=== PATIENT | male | born 1935 | race Caucasian/White ===

== ENCOUNTER → 2016-05-19 | Outpatient (REF) | payer OTHER ==
[2016-05-19 15:56] LABS: ALBUMIN 3.4 GM/DL (3.2-5.2); ALBUMIN/GLOBULIN RATIO 1.13 (1.00-1.93); ALKALINE PHOSPHATASE 62 U/L (45-117); ALT/SGPT 26 U/L (12-78); ANION GAP 8 MEQ/L (8-16); AST/SGOT 18 U/L (15-37); BILIRUBIN,TOTAL 0.9 MG/DL (0.2-1.0); BLOOD UREA NITROGEN 24 MG/DL (7-18); CALCIUM LEVEL 8.9 MG/DL (8.8-10.2); CARBON DIOXIDE LEVEL 28 MEQ/L (21-32); CHLORIDE LEVEL 107 MEQ/L (98-107); CHOLESTEROL LEVEL 136 MG/DL (<200); CREATININE FOR GFR 1.12 MG/DL (0.70-1.30); GLOMERULAR FILTRATION RATE > 60.0 (>35); GLUCOSE, FASTING 87 MG/DL (83-110); POTASSIUM SERUM 4.6 MEQ/L (3.5-5.1); SODIUM LEVEL 143 MEQ/L (136-145); TOTAL PROTEIN 6.4 GM/DL (6.4-8.2); TRIGLYCERIDES LEVEL 115 MG/DL (<150)
== END ==
LOC: M SFHCLACO 08:15
PROVIDERS: ATTEND Physician Assistant
DX: I10 Essential (primary) hypertension (principal); E78.2 Mixed hyperlipidemia; E03.9 Hypothyroidism, unspecified; E55.9 Vitamin D deficiency, unspecified; M15.9 Polyosteoarthritis, unspecified; Z12.5 Encounter for screening for malignant neoplasm of prostate; R97.20 Elevated prostate specific antigen [PSA]; Z85.46 Personal history of malignant neoplasm of prostate

== ENCOUNTER → 2016-11-17 | Outpatient (REF) | payer OTHER ==
[2016-11-17 15:35] LABS: ALBUMIN 3.6 GM/DL (3.2-5.2); ALBUMIN/GLOBULIN RATIO 1.16 (1.00-1.93); BILIRUBIN,TOTAL 1.4 MG/DL (0.2-1.0); CALCIUM LEVEL 9.3 MG/DL (8.8-10.2); CREATININE FOR GFR 1.37 MG/DL (0.70-1.30); POTASSIUM SERUM 4.7 MEQ/L (3.5-5.1); TOTAL PROTEIN 6.7 GM/DL (6.4-8.2)
== END ==
LOC: M SFHCLACO 08:07
PROVIDERS: ATTEND Physician Assistant
DX: I10 Essential (primary) hypertension (principal); E78.2 Mixed hyperlipidemia; E03.9 Hypothyroidism, unspecified; E55.9 Vitamin D deficiency, unspecified

== ENCOUNTER → 2016-12-30 | Outpatient (CLI) | payer OTHER ==
--- NOTE | 2016-12-31 05:42 | ECHO ---
DATE OF PROCEDURE: 12/30/2016 REFERRED BY: DEISI Rico. INDICATION: Murmur. HEIGHT: 67 inches. WEIGHT: 185 pounds. 2D MEASUREMENTS: Aortic root: 3.6 cm Ventricular septum: 1.31 cm Posterior wall: 1.29 cm Left ventricle diastole: 4.0 cm Left atrium: 3.7 cm LVOT: 2.3 cm Inferior vena cava: 1.0 cm DOPPLER MEASUREMENTS: Aortic valve velocity: 84.1 cm/s LVOT velocity: 56.4 cm/s Very mild mitral regurgitation. Mitral E velocity: 58.2 cm/s Mitral A velocity: 73.5 cm/s Mitral deacceleration time: 194 ms Mild tricuspid regurgitation. Estimated right ventricular systolic pressure 32 mmHg assuming an atrial pressure of 5 mmHg. Very mild pulmonic regurgitation. Pulmonary artery systolic pressure 36 mmHg by pulmonary acceleration time method. MITRAL ANNULAR TISSUE DOPPLER: E-prime septal: 5.2 cm/s E-prime lateral: 5.8 cm/s DESCRIPTION: Rhythm was sinus. Image quality was fair. No pericardial effusion. This was a 2D, M-mode, color flow Doppler and pulsed wave Doppler examination and included mitral annular tissue Doppler. CONCLUSIONS: 1. At least moderate calcified atheroma at the sinotubular junction. 2. Mild aortic valve sclerosis of a 3-cusp aortic valve. No aortic regurgitation. No aortic stenosis. 3. Mild concentric left ventricular hypertrophy. No regional LV wall motion abnormalities. Normal LV systolic function. LVEF 60-65% by visual estimate. Grade 1 LV diastolic dysfunction. 4. Suggestive of mild elevation of pulmonary artery systolic pressure and estimated right ventricle systolic pressure.
== END ==
LOC: M CARPUL 11:38
PROVIDERS: ATTEND Physician Assistant
DX: G45.8 Other transient cerebral ischemic attacks and related syndromes (principal); R09.89 Other specified symptoms and signs involving the circulatory and respiratory systems; R01.1 Cardiac murmur, unspecified

== ENCOUNTER → 2016-12-30 | Outpatient (CLI) | payer OTHER ==
--- NOTE | 2016-12-31 00:13 | REP ---
10/27/2004 Clinical: Bilateral carotid bruit and history of subclavian steal. Comparison: 10/27/2004. Technique: Colunga scale and color Doppler evaluation using linear high frequency transducer Findings: Two-dimensional colunga scale and color images demonstrate moderate mixed atheromatous plaque involving the bilateral carotid bulbs and proximal internal carotid arteries (left greater than right). Color Doppler interrogation demonstrates normal arterial wave patterns and velocities with mild spectral broadening. Normal flow direction is appreciated in the right vertebral artery along with reversal of flow direction in the left vertebral artery consistent with prior examinations and history of subclavian steal. RIGHT (cm/s) LEFT (cm/s) ICA peak systolic velocity 111 141 ICA diastolic velocity 26.0 26.1 ECA peak systolic velocity 107 167 CCA peak systolic velocity 114 166 ICA/CCA ratio 0.97 0.85 Impression: 1. Narrowing in the left carotid bulb/proximal internal carotid artery at the 50-69% range. Narrowing in the right carotid bulb/proximal internal carotid artery at the less than 50% range. 2. Reversal of flow in the left vertebral artery unchanged from prior examinations and consistent with history of subclavian steal. Signed by Aung Obrien MD 12/31/2016 12:04 A
== END ==
LOC: M RAD 09:49
PROVIDERS: ATTEND Physician Assistant
DX: G45.8 Other transient cerebral ischemic attacks and related syndromes (principal); R09.89 Other specified symptoms and signs involving the circulatory and respiratory systems; R01.1 Cardiac murmur, unspecified

== ENCOUNTER → 2017-03-15 | Outpatient (REF) | payer OTHER | LOC: M SMT 16:48 | PROVIDERS: ATTEND Urology | DX: R39.9 Unspecified symptoms and signs involving the genitourinary system (principal) ==

== ENCOUNTER → 2017-05-18 | Outpatient (REF) | payer OTHER ==
[2017-05-18 16:43] LABS: TOTAL 25(OH) VITAMIN D 36.1 NG/ML (30.0-100.0)
[2017-05-18 16:53] LABS: ALBUMIN 3.6 GM/DL (3.2-5.2); ALBUMIN/GLOBULIN RATIO 1.16 (1.00-1.93); ALKALINE PHOSPHATASE 68 U/L (45-117); ALT/SGPT 23 U/L (12-78); ANION GAP 7 MEQ/L (8-16); AST/SGOT 18 U/L (7-37); BILIRUBIN,TOTAL 0.6 MG/DL (0.2-1.0); BLOOD UREA NITROGEN 28 MG/DL (7-18); CALCIUM LEVEL 8.9 MG/DL (8.8-10.2); CARBON DIOXIDE LEVEL 27 MEQ/L (21-32); CHLORIDE LEVEL 108 MEQ/L (98-107); CHOLESTEROL LEVEL 137 MG/DL (<200); CREATININE FOR GFR 1.09 MG/DL (0.70-1.30); GLOMERULAR FILTRATION RATE > 60.0 (>35); GLUCOSE, FASTING 97 MG/DL (83-110); HDL CHOLESTEROL 50 MG/DL (>40); LDL CHOLESTEROL 68.6 MG/DL (<100); NON-HDL-C 87 MG/DL; POTASSIUM SERUM 4.7 MEQ/L (3.5-5.1); SODIUM LEVEL 142 MEQ/L (136-145); TOTAL PROTEIN 6.7 GM/DL (6.4-8.2); TRIGLYCERIDES LEVEL 92 MG/DL (<150)
== END ==
LOC: M SFHCLACO 08:18
DX: E78.2 Mixed hyperlipidemia (principal); I10 Essential (primary) hypertension; E03.9 Hypothyroidism, unspecified; E55.9 Vitamin D deficiency, unspecified
CPT/HCPCS: 84443

== ENCOUNTER → 2017-11-16 | Outpatient (REF) | payer OTHER ==
[2017-11-16 15:24] LABS: ALBUMIN 3.4 GM/DL (3.2-5.2); ALBUMIN/GLOBULIN RATIO 1.06 (1.00-1.93); ALKALINE PHOSPHATASE 64 U/L (45-117); ALT/SGPT 23 U/L (12-78); ANION GAP 8 MEQ/L (8-16); AST/SGOT 14 U/L (7-37); BILIRUBIN,TOTAL 1.1 MG/DL (0.2-1.0); BLOOD UREA NITROGEN 34 MG/DL (7-18); CALCIUM LEVEL 8.8 MG/DL (8.8-10.2); CARBON DIOXIDE LEVEL 24 MEQ/L (21-32); CHLORIDE LEVEL 111 MEQ/L (98-107); CHOLESTEROL LEVEL 127 MG/DL (<200); CHOLESTEROL RISK RATIO 2.645 (<5); CREATININE FOR GFR 1.18 MG/DL (0.70-1.30); GLOMERULAR FILTRATION RATE > 60.0 (>35); GLUCOSE, FASTING 93 MG/DL (70-100); HDL CHOLESTEROL 48 MG/DL (>40); LDL CHOLESTEROL 57.6 MG/DL (<100); NON-HDL-C 79 MG/DL; POTASSIUM SERUM 4.9 MEQ/L (3.5-5.1); SODIUM LEVEL 143 MEQ/L (136-145); THYROID STIMULATING HORMONE 0.819 uIU/ML (0.358-3.740); TOTAL PROTEIN 6.6 GM/DL (6.4-8.2); TRIGLYCERIDES LEVEL 107 MG/DL (<150)
[2017-11-16 15:57] LABS: TOTAL 25(OH) VITAMIN D 46.2 NG/ML (30.0-100.0)
== END ==
LOC: M SFHCLACO 08:41
DX: I10 Essential (primary) hypertension (principal); E78.2 Mixed hyperlipidemia; E03.9 Hypothyroidism, unspecified; E55.9 Vitamin D deficiency, unspecified
CPT/HCPCS: 84443

== ENCOUNTER → 2018-07-12 | Outpatient (REF) | payer MEDICARE ==
[2018-07-14 00:07] LABS: PSA TOTAL 0.8 ng/mL (0.0-4.0)
== END ==
LOC: M SFHCADAM 08:15
PROVIDERS: ATTEND Physician Assistant
DX: N40.1 Benign prostatic hyperplasia with lower urinary tract symptoms (principal)

== ENCOUNTER → 2018-11-15 | Outpatient (REF) | payer MEDICARE ==
[~2018-11-15] MED LIST: AZEL1SPR3 NARES; CALC-190 PO; ECOT81TA5 PO; FISH1000 PO; FLOM0.4C39 PO; FLON1SPR; GENT1SOL17 OP; GNP650TA8 PO; LEVO100T5 PO; LISI-538 PO; MULTCAP PO; NORC1TAB7 PO; OMEP10CASR PO; PRESCAP PO; SIMV20TA22 PO
[2018-11-15 14:13] LABS: TOTAL 25(OH) VITAMIN D 42.1 NG/ML (30.0-100.0)
[2018-11-15 14:18] LABS: ALBUMIN 3.5 GM/DL (3.2-5.2); ALT/SGPT 24 U/L (12-78); BILIRUBIN,TOTAL 0.7 MG/DL (0.2-1.0); BLOOD UREA NITROGEN 26 MG/DL (7-18); CALCIUM LEVEL 9.2 MG/DL (8.8-10.2); CARBON DIOXIDE LEVEL 25 MEQ/L (21-32); CHLORIDE LEVEL 110 MEQ/L (98-107); CHOLESTEROL LEVEL 123 MG/DL (<200); CHOLESTEROL RISK RATIO 2.673 (<5); CREATININE FOR GFR 1.17 MG/DL (0.70-1.30); GLOMERULAR FILTRATION RATE > 60.0 (>35); GLUCOSE, FASTING 93 MG/DL (70-100); HDL CHOLESTEROL 46 MG/DL (>40); LDL CHOLESTEROL 55 MG/DL (<100); NON-HDL-C 77 MG/DL; POTASSIUM SERUM 4.4 MEQ/L (3.5-5.1); SODIUM LEVEL 142 MEQ/L (136-145); TOTAL PROTEIN 6.4 GM/DL (6.4-8.2); TRIGLYCERIDES LEVEL 109 MG/DL (<150)
== END ==
LOC: M SFHCADAM 08:19
PROVIDERS: ATTEND Physician Assistant
DX: I10 Essential (primary) hypertension (principal); E78.2 Mixed hyperlipidemia; E03.9 Hypothyroidism, unspecified; E55.9 Vitamin D deficiency, unspecified; Z79.899 Other long term (current) drug therapy

== ENCOUNTER → 2019-02-03 | Outpatient (REF) | payer MEDICARE ==
[2019-02-03 16:12] LABS: ALBUMIN 3.6 GM/DL (3.2-5.2); ALT/SGPT 22 U/L (12-78); BILIRUBIN,TOTAL 0.8 MG/DL (0.2-1.0); BLOOD UREA NITROGEN 31 MG/DL (7-18); CALCIUM LEVEL 9.1 MG/DL (8.8-10.2); CARBON DIOXIDE LEVEL 28 MEQ/L (21-32); CHLORIDE LEVEL 107 MEQ/L (98-107); CREATININE FOR GFR 1.21 MG/DL (0.70-1.30); GLOMERULAR FILTRATION RATE > 60.0 (>35); GLUCOSE, FASTING 96 MG/DL (70-100); POTASSIUM SERUM 4.7 MEQ/L (3.5-5.1); SODIUM LEVEL 142 MEQ/L (136-145); TOTAL PROTEIN 6.8 GM/DL (6.4-8.2)
[2019-02-03 16:13] LABS: BASO # 0.1 10^3/uL (0.0-0.2); BASO % 0.8 % (0.0-1.0); EOS # 0.3 10^3/uL (0.0-0.5); EOS % 3.2 % (0.0-3.0); HEMATOCRIT 45.3 % (42.0-52.0); HEMOGLOBIN 14.7 g/dl (13.5-17.5); LYMPH # 2.1 10^3/uL (1.5-5.0); LYMPH % 24.4 % (24.0-44.0); MEAN CORPUSCULAR HEMOGLOBIN 31.7 pg (27.0-33.0); MEAN CORPUSCULAR HGB CONC 32.5 g/dl (32.0-36.5); MEAN CORPUSCULAR VOLUME 97.6 fl (80.0-96.0); MONO # 0.8 10^3/uL (0.0-0.8); MONO % 9.6 % (0.0-5.0); NEUTROPHILS # 5.2 10^3/uL (1.5-8.5); NEUTROPHILS % 61.6 % (36.0-66.0); PLATELET COUNT, AUTOMATED 309 10^3/uL (150-450); RED BLOOD COUNT 4.64 10^6/uL (4.30-6.10); WHITE BLOOD COUNT 8.5 10^3/uL (4.0-10.0)
[2019-02-03 16:24] LABS: INR 1.07; PROTHROMBIN TIME 13.6 SECONDS (11.8-14.0)
[2019-02-03 16:25] LABS: PARTIAL THROMBOPLASTIN TIME 31.2 SECONDS (25.0-38.4)
[2019-02-04 05:42] LABS: HEMOGLOBIN A1c 6.3 %
== END ==
LOC: M SFHCPLAZ 12:22
PROVIDERS: ATTEND Family Medicine
DX: I10 Essential (primary) hypertension (principal)

== ENCOUNTER 2019-03-07 05:41 | Day surgery (SDC) | payer MEDICARE ==
[~2019-03-07] VITALS: Ht 170.2 cm; Wt 83.9 kg
[~2019-03-07 05:41] MED LIST changes: -NORC1TAB7 PO; +SIMV20TA2 PO; -SIMV20TA22 PO
[2019-03-07] MEDS ORDERED: LR 1,000 ML IV ONE (06:00)
[2019-03-07] MEDS ORDERED: LIDOCAINE 1% MDV 20ML VIAL SQ PRN (06:00)
[2019-03-07] MEDS ORDERED: BUPIVACAINE HCL 0.25% 30 ML VIAL As Ordered ONE (06:57)
[2019-03-07] MEDS ORDERED: LACRILUBE (AKWA TEARS) OPHTH OINT 3.5 GM As Ordered ONE (07:14)
[2019-03-07] MEDS ORDERED: LIDOCAINE 2% INJ 100 MG/5 ML SDV (FOR ANES.) As Ordered ONE (07:17)
[2019-03-07] MEDS ORDERED: PROPOFOL 200 MG/20 ML VIAL As Ordered ONE (07:17)
[2019-03-07] MEDS ORDERED: ROCURONIUM BROMIDE 50 MG/5 ML VIAL As Ordered ONE ×2 (07:17→08:26)
[2019-03-07] MEDS ORDERED: fentaNYL 100 MCG/2 ML INJECTION (J3010) As Ordered ONE ×3 (07:18→09:39)
[2019-03-07] MEDS ORDERED: ONDANSETRON 4MG/2ML VIAL (J2405) As Ordered ONE (07:18)
[2019-03-07] MEDS ORDERED: MIDAZOLAM INJ 2 MG/2 ML VIAL (J2250) As Ordered ONE (07:18)
[2019-03-07] MEDS ORDERED: dexameTHASONE 4 MG/ML 1ML VIAL (J1100) As Ordered ONE (07:18)
[2019-03-07] MEDS ORDERED: ePHEDrine SULFATE 25 MG/5 ML(5MG/ML) SYRINGE As Ordered ONE ×2 (08:08→08:11)
[2019-03-07] MEDS ORDERED: SUGAMMADEX SODIUM 500 MG/5 ML VIAL (BRIDION) As Ordered ONE (08:39)
[2019-03-07] MEDS ORDERED: ACETAMINOPHEN 1000MG 100ML IV BTL (OFIRMEV) (J0131 PER 10MG) As Ordered ONE (08:45)
[2019-03-07] MEDS ORDERED: NORC1TAB7 PO (09:35)
[2019-03-07] MEDS ORDERED: PERCOCET 5MG/325MG TAB As Ordered ONE (09:39)
[2019-03-07] MEDS ORDERED: fentaNYL 100 MCG/2 ML INJECTION (J3010) IV PRN (09:45)
[2019-03-07] MEDS ORDERED: LR 1,000 ML IV SCH (09:45)
[2019-03-07] MEDS ORDERED: PERCOCET 5MG/325MG TAB PO PRN (09:45)
[2019-03-07] MEDS ORDERED: HYDROMORPHONE HCL 0.5 MG/ 0.5 ML SYRINGE (J1170 PER 1) IV PRN (09:45)
[2019-03-07] MEDS ORDERED: ONDANSETRON 4MG/2ML VIAL (J2405) IV PRN (09:45)
[2019-03-07] MEDS ORDERED: ACETAMINOPHEN TAB 650MG DOSE (2X325MG) PO PRN (09:45)
[2019-03-07] MEDS ORDERED: NORCO, ANEXSIA 5/325MG TABLET (HYDROcodone/ACETAMINOPHEN) PO PRN (09:45)
[2019-03-07 12:25] VITALS: BP 140/70
--- NOTE | 2019-03-07 23:36 | RO ---
DATE OF PROCEDURE: 03/07/2019 PREOPERATIVE DIAGNOSIS: Umbilical hernia. POSTOPERATIVE DIAGNOSIS: Umbilical hernia. PROCEDURE PERFORMED: Robotic-assisted laparoscopic umbilical herniorrhaphy with mesh. SURGEON: Dr. Johnathan Kim DRUM STENCILER: GHISLAINE Almanza who provided assistance in placement of trocars, preparation of the robot, changing of instruments, passage of sutures and mesh and closing of the wound. ANESTHESIA: General. INDICATIONS FOR THE PROCEDURE: The patient is an 83-year-old man with a long history of an umbilical hernia, which is occasionally uncomfortable. He is now for a robotic-assisted laparoscopic umbilical herniorrhaphy. DESCRIPTION OF PROCEDURE: The patient was placed supine on the operating table. He was placed under general endotracheal anesthesia. The patient's abdomen was prepped and draped in a sterile fashion. 0.25% Marcaine was infiltrated at the trocar sites as needed. A short transverse left lateral mid abdominal wall incision was made. A Veress needle was inserted, and after a positive hanging drop test, the abdomen was insufflated with carbon dioxide gas. An 8 mm robotic port was placed over a 5 mm scope and advanced through the abdominal wall without difficulty. Initial examination showed the umbilical hernia defect very clearly. There were no adhesions within the abdomen. Liver appeared normal. Two additional 8 mm ports were placed in the left side of the abdomen, one in the left upper quadrant and one in the left lower quadrant. The patient was tilted into a slight Trendelenburg position. The patient cart of the XI robot was brought into position, and the camera port was docked. Targeting took place, and the additional ports were docked as well. I then moved to the control console and proceeded with the operation using a Force bipolar cautery and the cauterizing scissors. The hernia defect was approximately 3 cm in maximum diameter. A flap of peritoneum and preperitoneal fat was developed beginning on the left side and working across the midline incorporating the hernia sac and then extending to the right. The hernia sac was reduced intact. The abdominal pressure was reduced to 8 mmHg, and the fascial defect was then closed with a running suture of #1-0 Stratafix. A 9 cm Parietex patch was selected. This was reference code PC09X and lot number [id number]. This was trimmed down to a 7 cm circular patch, and this was inserted into the abdomen and placed into the preperitoneal space. This was centered over the fascial closure and then sutured circumferentially with a running #2-0 V-Loc suture. This gave a very nice apposition of the mesh to the fascia. The peritoneal flap was then closed also with a running #2-0 V-Loc. The patient tolerated the procedure well without apparent complication. The abdomen was deflated after removal of the robotic instruments, and the trocars were then removed. Megha then proceeded to close the skin incisions with buried Vicryl and Steri-Strips. Light dressings were applied. The patient tolerated the procedure well without apparent complication. He was awakened in the operating room, extubated, and moved to the recovery room in stable condition.
== END 2019-03-07 12:41 | disposition home or self-care (01) ==
LOC: M SDC 05:41
PROVIDERS: ATTEND Surgery
DX: K42.9 Umbilical hernia without obstruction or gangrene (principal); I10 Essential (primary) hypertension; E78.5 Hyperlipidemia, unspecified; E03.9 Hypothyroidism, unspecified; K21.9 Gastro-esophageal reflux disease without esophagitis; J44.9 Chronic obstructive pulmonary disease, unspecified; Z87.891 Personal history of nicotine dependence; N40.0 Benign prostatic hyperplasia without lower urinary tract symptoms; Z79.899 Other long term (current) drug therapy
CPT/HCPCS: 49652; C1781; J0131; J1100; J2250; J2405; J3010

== ENCOUNTER 2019-05-08 12:02 | Emergency (ER) | payer MEDICARE ==
[~2019-05-08] VITALS: Ht 170.2 cm; Wt 81.8 kg
[~2019-05-08 12:02] MED LIST changes: +NORC1TAB7 PO; -SIMV20TA2 PO; +SIMV20TA22 PO
[2019-05-08 12:47] LABS: BASO # 0.1 10^3/uL (0.0-0.2); BASO % 0.6 % (0.0-1.0); EOS # 0.4 10^3/uL (0.0-0.5); EOS % 4.5 % (0.0-3.0); HEMATOCRIT 46.2 % (42.0-52.0); HEMOGLOBIN 14.7 g/dl (13.5-17.5); LYMPH % 20.2 % (24.0-44.0); MEAN CORPUSCULAR HEMOGLOBIN 30.4 pg (27.0-33.0); MEAN CORPUSCULAR HGB CONC 31.8 g/dl (32.0-36.5); MEAN CORPUSCULAR VOLUME 95.7 fl (80.0-96.0); MONO # 0.7 10^3/uL (0.0-0.8); MONO % 6.9 % (0.0-5.0); NEUTROPHILS # 6.6 10^3/uL (1.5-8.5); NEUTROPHILS % 67.2 % (36.0-66.0); PLATELET COUNT, AUTOMATED 278 10^3/uL (150-450); RED BLOOD COUNT 4.83 10^6/uL (4.30-6.10); WHITE BLOOD COUNT 9.8 10^3/uL (4.0-10.0)
--- NOTE | 2019-05-08 13:31 | REP ---
Duplex extremity venous ultrasound: Right lower extremity. History: Right calf pain, rule out DVT. Findings: The deep veins are anechoic and fully compressible from the groin to the popliteal fossa in the right lower extremity. Color flow imaging is homogeneous. Spectral Doppler interrogation demonstrates intact respiratory variation in flow and normal manual augmentation of flow. There is no evidence of deep vein thrombosis. Impression: Negative right lower extremity duplex venous ultrasound. No evidence of deep vein thrombosis. Electronically Signed by Mike Huang MD 05/08/2019 01:23 P
[2019-05-08 13:32] LABS: BLOOD UREA NITROGEN 29 MG/DL (7-18); CALCIUM LEVEL 9.6 MG/DL (8.8-10.2); CARBON DIOXIDE LEVEL 26 MEQ/L (21-32); CHLORIDE LEVEL 107 MEQ/L (98-107); CK-MB VALUE MASS 2.3 NG/ML (<3.6); CPK CREATINE PHOSPHOKINASE 64 U/L (39-308); GLOMERULAR FILTRATION RATE > 60.0 (>35); GLUCOSE, FASTING 99 MG/DL (70-100); MB/CK RELATIVE INDEX 3.59 (< OR =4); POTASSIUM SERUM 4.4 MEQ/L (3.5-5.1); SODIUM LEVEL 143 MEQ/L (136-145); TROPONIN I < 0.02 NG/ML (< 0.10)
--- NOTE | 2019-05-08 13:34 | REP ---
Portable chest x-ray: Single view. History: Chest pain. Comparison study: June 05, 2015. Findings: There is evidence of a hiatal hernia behind the heart. The lungs are well inflated and clear. There is some plate-like atelectasis in the left base at the lateral pleural angle. Pleural angles are sharp. There are granulomatous calcifications present bilaterally. There is pleuroparenchymal scarring in the right apex. Impression: Chronic right apical pleuroparenchymal changes and granulomatous calcifications. Hiatal hernia behind the heart. Plate-like atelectasis left base laterally. Otherwise no acute disease. Electronically Signed by Mike Huang MD 05/08/2019 02:54 P
[2019-05-08] MEDS ORDERED: ISOVUE-370 76% 100ML VIAL (Q9967) As Ordered ONE (13:37)
--- NOTE | 2019-05-08 14:27 | REP ---
CT pulmonary angiogram: With IV contrast. History: Chest pain, shortness of breath, rule out pulmonary embolus. Comparison studies: No comparison chest CT. Comparison is made with today's chest x-ray. Contrast dose: 75 mL of Isovue [address] technique: Helical scanning is acquired and overlapping 1.5 mm and contiguous 3 mm axial images are reformatted. In addition, maximum intensity projection and multiplanar re-formation images are generated in sagittal and coronal imaging projections. CT pulmonary angiographic findings: There is good opacification of the pulmonary arterial tree. There is no CT evidence of pulmonary embolism. Thoracic aorta enhances homogeneously. No aneurysm or dissection is seen. Vascular calcification is noted fairly diffusely. Maximum intensity projection images show no filling defect or vessel cutoff. There are scattered granulomatous calcifications throughout the lung gonzales. There is a fairly large hiatal hernia. Granulomatous calcifications are seen in the spleen. No significant pulmonary nodule or mass lesion is seen. No infiltrate is noted. There are scattered normal-sized mediastinal lymph nodes. No bony destructive lesion is appreciated. Impression: No CT evidence of pulmonary embolus. Vascular calcification and scattered granulomatous calcifications. No acute disease. Fairly large hiatal hernia. Electronically Signed by Mike Huang MD 05/08/2019 02:56 P
[2019-05-08 17:07] LABS: CK-MB VALUE MASS 2.2 NG/ML (<3.6); CPK CREATINE PHOSPHOKINASE 57 U/L (39-308); MB/CK RELATIVE INDEX 3.86 (< OR =4); TROPONIN I < 0.02 NG/ML (< 0.10)
[2019-05-08 17:45] VITALS: BP 126/72
--- NOTE | 2019-05-10 07:39 | ECGEPIP ---
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
--- NOTE | 2019-05-10 07:46 | ECGEPIP ---
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
== END 2019-05-08 17:50 | disposition home or self-care (01) ==
LOC: M ED 12:02 → EDBD 12:02 → M ED 17:50
DX: M54.31 Sciatica, right side (principal); R07.89 Other chest pain; I10 Essential (primary) hypertension; J44.9 Chronic obstructive pulmonary disease, unspecified; N40.0 Benign prostatic hyperplasia without lower urinary tract symptoms; E03.9 Hypothyroidism, unspecified; Z87.891 Personal history of nicotine dependence; Z82.49 Family history of ischemic heart disease and other diseases of the circulatory system; K44.9 Diaphragmatic hernia without obstruction or gangrene; Z79.82 Long term (current) use of aspirin; Z79.899 Other long term (current) drug therapy
CPT/HCPCS: 71045; 71275; 80048; 82550; 82553; 84484; 85025; 93005; 93041; 93971; 94760; 99285; Q9967

== ENCOUNTER → 2019-06-01 | Outpatient (CLI) | payer MEDICARE ==
--- NOTE | 2019-06-01 11:17 | REPVR ---
PROCEDURE INFORMATION: Exam: MR Lumbar Spine Without Contrast. Exam date and time: 06/01/2019 8:14 AM Age: 84 years old Clinical indication: Low back pain; Additional info: Other intervertral disc degeneration TECHNIQUE: Imaging protocol: Multiplanar magnetic resonance images of the lumbar spine without intravenous contrast. COMPARISON: No relevant prior studies available. FINDINGS: Vertebrae: No acute compression fracture is seen. There is 4 mm of retrolisthesis of L1 on L2. Modic 2 marrow changes are present along the L4-L5 endplates. Spinal cord: The conus medullaris terminates at the T12 level. There is no evidence of arachnoiditis or cauda equina compression. T12-L1: There is mild broad-based posterior disc bulging. This is causing minimal spinal canal stenosis. L1-L2: There is disc dehydration, severe disc space narrowing, moderate circumferential disc bulging, circumferential osteophytic ridging, and mild facet arthropathy. This is causing mild spinal canal stenosis, moderate left neural foraminal narrowing, and moderate/severe right neural foraminal narrowing. L2-L3: There is moderate circumferential disc bulging and mild facet arthropathy. There is no significant spinal canal stenosis. Mild right and minimal left neural foraminal narrowing is present. L3-L4: There is moderate circumferential disc bulging and facet arthropathy. This is causing minimal spinal canal stenosis and mild bilateral neural foraminal narrowing. L4-L5: There is severe disc space narrowing, circumferential disc bulging, circumferential osteophytic ridging, and severe facet arthropathy. This is causing mild/moderate spinal canal stenosis, severe narrowing of the subarticular recesses, moderate left neural foraminal narrowing, and severe right neural foraminal narrowing. L5-S1: There is disc dehydration, mild disc space narrowing, marked circumferential disc bulging, and moderate facet arthropathy. This is causing minimal spinal canal stenosis, moderate narrowing of the subarticular recesses the, moderate left neural foraminal narrowing, and mild right neural foraminal narrowing. Soft tissues: Unremarkable. 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
== END ==
LOC: M RAD 06:47
PROVIDERS: ATTEND Physician Assistant
DX: M51.36 Other intervertebral disc degeneration, lumbar region (principal); M51.24 Other intervertebral disc displacement, thoracic region; M51.26 Other intervertebral disc displacement, lumbar region; M48.061 Spinal stenosis, lumbar region without neurogenic claudication

== ENCOUNTER → 2019-06-13 | Outpatient (CLI) | payer MEDICARE ==
--- NOTE | 2019-06-13 15:00 | REP ---
DUPLEX CAROTID SONOGRAPHY: HISTORY: Stenosis. Comparison carotid sonography is from December 30, 2016. Known subclavian steal syndrome. FINDINGS: Antegrade flow is observed in the right vertebral. Reverse flow is noted in the left vertebral artery, as noted previously. RIGHT CAROTID: Right common carotid artery shows minimal diffuse intimal thickening. There is mild mixed plaquing in the right carotid bulb and proximal ICA on two-dimensional scanning. Color flow and spectral Doppler interrogation remain unremarkable on the right. VELOCITY CHART RIGHT CAROTID: Right CCA PSV 87 cm/s Right ICA PSV 117 EDV 26 Right ECA PSV 81 Eight ICA/CCA ratio normal 1.34. LEFT CAROTID: The left common carotid artery shows mild diffuse intimal thickening. There is mild mixed plaquing in the bulb and proximal ICA. There is a mildly elevated systolic velocity in the ICA on the left. VELOCITY CHART LEFT CAROTID: Left CCA PSV 124 cm/s Left ICA PSV 168 EDV 27 Left ECA PSV 122 Left ICA/CCA ratio is normal 1.35. IMPRESSION: Less than 50% category narrowing in the right ICA by Doppler velocity criteria. 50-69% category narrowing in the left ICA by Doppler velocity criteria. Peak systolic velocity in the left ICA is a little higher today than it was in 2017. Retrograde flow again noted in the left vertebral consistent with subclavian steal physiology. Electronically Signed by Mike Huang MD 06/13/2019 08:00 P
--- NOTE | 2019-06-13 15:21 | REP ---
Bilateral lower extremity arterial Doppler ultrasound: History: Stenosis. Claudication. Peripheral vascular disease. Findings: Ankle brachial indices are normal measured at 1.1 on the right and 1.3 on the left. Mild to moderate plaquing is seen bilaterally in the lower extremities. Relatively normal biphasic Doppler waveforms are seen bilaterally in the lower extremities. No high-grade stenosis is noted. Velocity chart right lower extremity arteries: Right CF A 117 cm/S Profunda 111 Proximal SFA 63 Mid SFA 59 Distal SFA and 69 Popliteal 47 Proximal AT 82 Tibioperoneal trunk 46 Proximal STOCK PULLER 37 Distal STOCK PULLER 58 Distal AT A 72 Velocity chart left lower extremity arteries: Left CF A 129 cm/S Profunda 69 Proximal SFA 80 Mid SFA 18 Distal SFA 152 Popliteal 49 Proximal AT A 37 Tibioperoneal trunk 41 Proximal STOCK PULLER 43 Distal STOCK PULLER 50 Distal AT A 58 Electronically Signed by Mike Huang MD 06/13/2019 03:12 P
== END ==
LOC: M RAD 12:01
PROVIDERS: ATTEND Surgery Vascular Surgery
DX: I65.23 Occlusion and stenosis of bilateral carotid arteries (principal); I70.203 Unspecified atherosclerosis of native arteries of extremities, bilateral legs

== ENCOUNTER → 2019-08-10 | Outpatient (REF) | payer MEDICARE ==
[2019-08-10 12:56] LABS: ALBUMIN 3.5 GM/DL (3.2-5.2); BILIRUBIN,TOTAL 1.4 MG/DL (0.2-1.0); CALCIUM LEVEL 9.5 MG/DL (8.8-10.2); CHOLESTEROL RISK RATIO 2.772 (<5); CREATININE FOR GFR 1.24 MG/DL (0.70-1.30); POTASSIUM SERUM 4.8 MEQ/L (3.5-5.1); TOTAL PROTEIN 6.7 GM/DL (6.4-8.2)
[2019-08-10 13:04] LABS: TOTAL 25(OH) VITAMIN D 40.9 NG/ML (30.0-100.0)
[2019-08-10 13:23] LABS: HEMOGLOBIN A1c 6.3 %
== END ==
LOC: M SFHCADAM 08:37
PROVIDERS: ATTEND Physician Assistant
DX: I10 Essential (primary) hypertension (principal); E78.2 Mixed hyperlipidemia; E03.9 Hypothyroidism, unspecified; E11.9 Type 2 diabetes mellitus without complications; E55.9 Vitamin D deficiency, unspecified

== ENCOUNTER → 2020-02-27 | Outpatient (REF) | payer MEDICARE ==
[2020-02-27 12:42] LABS: HEMOGLOBIN A1c 6.1 %
[2020-02-27 13:14] LABS: ALBUMIN 3.9 GM/DL (3.2-5.2); ALT/SGPT 24 U/L (12-78); BLOOD UREA NITROGEN 24 MG/DL (7-18); CALCIUM LEVEL 9.6 MG/DL (8.8-10.2); CARBON DIOXIDE LEVEL 27 MEQ/L (21-32); CHLORIDE LEVEL 110 MEQ/L (98-107); CHOLESTEROL LEVEL 130 MG/DL (<200); CHOLESTEROL RISK RATIO 2.549 (<5); CREATININE FOR GFR 1.16 MG/DL (0.70-1.30); GLOMERULAR FILTRATION RATE > 60.0 (>35); GLUCOSE, FASTING 95 MG/DL (70-100); HDL CHOLESTEROL 51 MG/DL (>40); LDL CHOLESTEROL 49 MG/DL (<100); NON-HDL-C 79 MG/DL; POTASSIUM SERUM 4.9 MEQ/L (3.5-5.1); SODIUM LEVEL 143 MEQ/L (136-145); THYROID STIMULATING HORMONE 0.554 uIU/ML (0.358-3.740); TOTAL PROTEIN 6.8 GM/DL (6.4-8.2); TRIGLYCERIDES LEVEL 148 MG/DL (<150)
== END ==
LOC: M SFHCADAM 08:45
PROVIDERS: ATTEND Physician Assistant
DX: I10 Essential (primary) hypertension (principal); E78.2 Mixed hyperlipidemia; E03.9 Hypothyroidism, unspecified; E11.9 Type 2 diabetes mellitus without complications

== ENCOUNTER → 2020-07-24 | Outpatient (CLI) | payer MEDICARE ==
[~2020-07-24] MED LIST changes: -LISI-538 PO; +LISI20TA33 PO
--- NOTE | 2020-07-24 12:09 | REP ---
INDICATION: OCCLUSION AND STENOSIS OF BILATERAL CAROTID ARTERIES. COMPARISON: 06/13/2019. TECHNIQUE: Bilateral carotid artery duplex ultrasound. FINDINGS: Peak flow velocities: Right left Internal carotid artery 112.8 cm/sec 181 cm/sec Int. Carotid diastolic 27.8 cm/sec 20.6 cm/sec External carotid artery 78.7 cm/sec 148.1 cm/sec Common carotid artery 119 cm/sec 122.8 cm/sec . ICA-CCA ratio 0.95 1.5 There is mild atheromatous plaque in the carotid bulbs bilaterally. The peak flow velocities in the left internal carotid artery and left external carotid artery are mildly elevated compatible with 50-69 % luminal narrowing. The peak flow velocities on the right are normal. There is reversal of flow in the left vertebral artery compatible with subclavian steal. IMPRESSION: There is 50-69% stenosis in the left ICA by peak flow velocity. This is similar to the prior study. Peak flow velocity of the left ECA today is compatible with 50-69% stenosis of the left ECA as an interval change. There are no stenoses identified on the right. Reversal of flow in the left vertebral artery is again identified compatible with subclavian steal. This is unchanged. <Electronically signed by Pawan Francis > 07/24/20 0023
--- NOTE | 2020-07-24 12:20 | REP ---
INDICATION: OCCLUSION AND STENOSIS OF BILATERAL CAROTID ARTERIES COMPARISON: 06/13/2019. TECHNIQUE: Real time colunga scale and Duplex Doppler evaluation of the bilateral lower extremity arterial vasculature using linear high frequency transducer. FINDINGS: Colunga scale and duplex doppler images demonstrate moderate diffuse plaquing of the bilateral lower extremity arterial systems. There are diffuse biphasic waveforms noted. There is approximately 2-1 stenosis in the distal left superficial femoral artery. A genicular artery is noted at the distal left SFA. No occlusion is seen. Peak systolic velocities (cm/sec) Common femoral artery: Right 163; Left 124 Profunda femoris: Right 96; Left 90 SFA (proximal): Right 120; Left 89 SFA (mid): Right 71; Left 89 SFA (distal): Right 56; Left 182 Popliteal artery: Right 58; Left 36 SHANTI (prox.): Right 81; Left 42 Tibioperoneal trunk: Right 63; Left 34 PRINCIPAL PROGRAMMER (prox.): Right 52; Left 30 PRINCIPAL PROGRAMMER (distal): Right 51; Left 38 SHANTI (distal): Right 30; Left 55 IMPRESSION: Moderate diffuse plaquing bilaterally. Stenosis distal left SFA approximately 2-1. <Electronically signed by Pawan Colunga > 07/24/20 [id number]
== END ==
LOC: M RAD 09:36
PROVIDERS: ATTEND Surgery Vascular Surgery
DX: I73.9 Peripheral vascular disease, unspecified (principal); I65.23 Occlusion and stenosis of bilateral carotid arteries

== ENCOUNTER → 2020-10-15 | Outpatient (REF) | payer MEDICARE ==
[2020-10-15 13:43] LABS: ALBUMIN 3.7 GM/DL (3.2-5.2); BILIRUBIN,TOTAL 0.9 MG/DL (0.2-1.0); CALCIUM LEVEL 9.5 MG/DL (8.8-10.2); CHOLESTEROL RISK RATIO 2.553 (<5); CREATININE FOR GFR 1.29 MG/DL (0.70-1.30); GLOMERULAR FILTRATION RATE 56.2 (>35); POTASSIUM SERUM 4.9 MEQ/L (3.5-5.1); THYROID STIMULATING HORMONE 0.184 uIU/ML (0.358-3.740); TOTAL PROTEIN 6.9 GM/DL (6.4-8.2)
[2020-10-15 14:21] LABS: HEMOGLOBIN A1c 6.1 %
== END ==
LOC: M SFHCADAM 08:44
PROVIDERS: ATTEND Physician Assistant
DX: I10 Essential (primary) hypertension (principal); E78.2 Mixed hyperlipidemia; E03.9 Hypothyroidism, unspecified; E11.9 Type 2 diabetes mellitus without complications

== ENCOUNTER → 2021-02-06 | Outpatient (CLI) | payer MEDICARE ==
--- NOTE | 2021-02-06 15:17 | REP ---
INDICATION: Assess stenosis TECHNIQUE: Carotid ultrasonography was performed bilaterally. FINDINGS: Right: CCA systolic: 108.0 centimeters/second CCA diastolic: 9.41 centimeters/second ICA systolic: 76.3 centimeters/second ICA diastolic: 20.3 centimeters/second ICA CCA ratio: 0.71 Left: CCA systolic: 168 centimeters/second CCA diastolic: 19.9 centimeters/second ICA systolic: 146.0 centimeters/second ICA diastolic: 26.9 centimeters/second ICA CCA ratio: 0.86 Vertebral artery: Right: Antegrade flow left: Retrograde flow Patchy and linear echogenic material is seen along the carotid arterial trejo some of which casts and acoustic shadow. IMPRESSION: 1. According to the SRU criteria there is a 50-69% stenosis of the left internal carotid artery. This is secondary to both calcified and noncalcified atheromatous plaque formation. There is less than 50% stenosis of the right internal carotid artery secondary to the same. 2. There is evidence of a left subclavian steal syndrome. <Electronically signed by Matias Jackson > 02/06/21 0170
== END ==
LOC: M RAD 14:27
PROVIDERS: ATTEND Surgery Vascular Surgery
DX: I65.23 Occlusion and stenosis of bilateral carotid arteries (principal)

== ENCOUNTER → 2021-04-02 | Outpatient (REF) | payer MEDICARE ==
[2021-04-02 12:43] LABS: HEMATOCRIT 40.6 % (42.0-52.0); HEMOGLOBIN 13.2 g/dl (13.5-17.5); MEAN CORPUSCULAR HEMOGLOBIN 31.9 pg (27.0-33.0); MEAN CORPUSCULAR HGB CONC 32.5 g/dl (32.0-36.5); MEAN CORPUSCULAR VOLUME 98.1 fl (80.0-96.0); PLATELET COUNT, AUTOMATED 294 10^3/uL (150-450); RED BLOOD COUNT 4.14 10^6/uL (4.30-6.10); WHITE BLOOD COUNT 8.4 10^3/uL (4.0-10.0)
[2021-04-02 12:48] LABS: APPEARANCE, URINE CLEAR (CLEAR); BACTERIA, URINE AUTO NEGATIVE (NEGATIVE); BILIRUBIN, URINE AUTO NEGATIVE (NEGATIVE); BLOOD, URINE BLOOD NEGATIVE (NEGATIVE); COLOR, URINE YELLOW (YELLOW); GLUCOSE, URINE (UA) AUTO NEGATIVE (NEGATIVE); KETONE, URINE AUTO NEGATIVE (NEGATIVE); LEUKOCYTE ESTERASE, URINE AUTO NEGATIVE (NEGATIVE); MUCUS, URINE SMALL (NEGATIVE); NITRITE, URINE AUTO NEGATIVE (NEGATIVE); PROTEIN, URINE AUTO NEGATIVE (NEGATIVE); RBC, URINE AUTO 0 /HPF (0-3); SPECIFIC GRAVITY URINE AUTO 1.011 (1.002-1.035); SQUAMOUS EPITHELIAL CELL UR AU 0 /HPF (0-6); UROBILINOGEN, URINE AUTO 0.2 mg/dL (0.0-2.0); WBC, URINE AUTO 0 /HPF (0-3)
[2021-04-02 12:56] LABS: PROTHROMBIN TIME 13.6 SECONDS (12.7-14.5)
[2021-04-02 12:57] LABS: PARTIAL THROMBOPLASTIN TIME 32.9 SECONDS (25.9-37.0)
[2021-04-02 13:13] LABS: HEMOGLOBIN A1c 5.7 %
[2021-04-02 13:20] LABS: ALBUMIN 3.5 GM/DL (3.2-5.2); BILIRUBIN,TOTAL 0.7 MG/DL (0.2-1.0); CALCIUM LEVEL 9.6 MG/DL (8.8-10.2); CHOLESTEROL RISK RATIO 2.545 (<5); CREATININE FOR GFR 1.4 MG/DL (0.70-1.30); FREE T4 1.34 NG/DL (0.76-1.46); POTASSIUM SERUM 4.8 MEQ/L (3.5-5.1); THYROID STIMULATING HORMONE 0.205 uIU/ML (0.358-3.740); TOTAL PROTEIN 6.7 GM/DL (6.4-8.2)
== END ==
LOC: M SFHCADAM 11:03
PROVIDERS: ATTEND Family Medicine
DX: Z01.818 Encounter for other preprocedural examination (principal); E03.9 Hypothyroidism, unspecified; E78.2 Mixed hyperlipidemia; E11.9 Type 2 diabetes mellitus without complications; I11.9 Hypertensive heart disease without heart failure; I65.22 Occlusion and stenosis of left carotid artery; Z79.899 Other long term (current) drug therapy